=== PATIENT | female | born 1955 | race Caucasian/White ===

== ENCOUNTER 2023-05-01 12:25 | Outpatient (AMB) | payer MEDICARE, MEDICAID, SELFPAY ==
--- NOTE | 2023-05-01 13:05 | HO.SPINEOV ---
Intake Intake Visit Reasons: Low back pain Intake Note: Ms. Uribe is here today c/o low back pain. MRI done @ [facility]/brought disc. Store[employer] Required: No Assessment & Plan Assessment & Plan (1) Lumbar radiculopathy, right: Code(s): M54.16 - Radiculopathy, lumbar region Plan: Dear colleague Thank you for referring Saray Uribe to the office today with a chief complaint of right leg pain and numbness. HPI: This 67-year-old female developed a radiating pain down the outside of the right thigh followed by numbness of her foot. The symptoms come after prolonged sitting, walking standing or doing stairs. Laying down improves the symptoms. She denies weakness. She denies symptoms in her left leg. The pain is excruciating and varying from a 7 to a 10/10. She tried physical therapy which made it worse and cortisone injections without effect. PMH: Diabetes, hypertension, TIAs (last 3 years ago) fibromyalgia, gastroparesis, COPD, bilateral knee surgeries bilaterally hip surgeries, shoulder surgery back surgery, cholecystectomy, tonsillectomy, appendectomy, hysterectomy, stimulator for bladder Medications: Siriva, , clonazepam, duloxetine, Jardiance, gabapentin, lidocaine patch, losartan, Zofran, oxybutynin, albuterol, aspirin, Rosuvastatin, Spiriva. Allergies: Amitriptyline, Sonopril, promethazine, latex, adhesive tape Social history: Smokes 1 pack a week. Physical Exam: Pleasant female in obvious agony. Straight leg raise produces pain down the right lateral thigh. Radiological Studies: MRI done at [facility] on 03/18/2022 shows multilevel degenerative disc disease, predominantly at L4-5 and L5-S1 and moderate L4-5 central spinal stenosis. A standing lumbar x-rays with dynamic views shows a mild upper lumbar degenerative scoliosis. No instability. Impression/Plan: This 67-year-old female is suffering from a right lumbar radiculopathy most likely related to her moderate L4-5 spinal stenosis. Her last A1c was around 7. She is in excruciating pain as stated before. Offered her a right L4-5 hemilaminotomy to decompress the L5 nerve root. 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 She is scheduled for 06/28/2023. Thank you for allowing me to participate in your patients care. total time spent was 50 minutes in counseling ,coordination of plan, personal review of imaging, surgical decision making and subsequent plan Je Galo MD, PhD Spine Fellowship Trained Neurosurgeon Director, [facility] (2) Lumbar stenosis with neurogenic claudication: Code(s): M48.062 - Spinal stenosis, lumbar region with neurogenic claudication Orders: Orders XR lumbar spine 4V min Today M54.16 - Radiculopathy, lumbar region Coding Level of Care Code New Pt Level 4 (97190) Diagnoses Lumbar radiculopathy, right M54.16 Lumbar stenosis with neurogenic claudication M48.062
== END 2023-05-01 13:56 | disposition home or self-care (01) ==
PROVIDERS: PCP Nurse Practitioner Family; Referring Provider Student in an Organized Health Care Education/Training Program; Visit Provider Neurological Surgery
DX: M54.16 Radiculopathy, lumbar region (principal); M48.062 Spinal stenosis, lumbar region with neurogenic claudication
CPT/HCPCS: 99204

== ENCOUNTER 2023-05-01 12:25 | Outpatient (REF) | payer MEDICARE, MEDICAID, SELFPAY ==
--- NOTE | ~2023-05-01 | XR_ITS ---
EXAMINATION: XR LUMBOSACRAL SPINE WITH OBLIQUES CLINICAL INFORMATION: Lumbar radiculopathy. COMPARISON: None available. TECHNIQUE: Frontal view of the lumbar spine as well as lateral views in flexion, neutral, and extension. FINDINGS: Question decreased bone mineral density. There is moderate multilevel disc degenerative change with relative sparing at L3-L4. No spondylolysis or spondylolisthesis is appreciated, including on flexion, neutral, and extension views. Mild lumbar dextrocurvature. Vertebral body heights appear maintained. No lytic or sclerotic bony lesion is seen. The paraspinal soft tissues appear unremarkable. Status post left total hip arthroplasty. Aortoiliac calcification. Status post cholecystectomy. Surgical clip projecting over the lower pelvis may represent a dropped clip. Electronic presumed pulse generating device projects posterior to the left iliac bone, and the tip of its lead projects just anterior to the left lower sacrum XR/XR lumbar spine 4V min IMPRESSION: Degenerative change.
== END 2023-05-01 12:26 | disposition home or self-care (01) ==
LOC: HO.HOSX 12:25
PROVIDERS: PCP Nurse Practitioner Family; Visit Provider Neurological Surgery
DX: M54.16 Radiculopathy, lumbar region (principal); M48.062 Spinal stenosis, lumbar region with neurogenic claudication
CPT/HCPCS: 72110

== ENCOUNTER → 2023-08-30 12:40 | Outpatient (BNV) | payer MEDICARE, MEDICAID, SELFPAY | PROVIDERS: PCP Nurse Practitioner Family; Visit Provider Internal Medicine | DX: I10 Essential (primary) hypertension (principal); Z86.73 Personal history of transient ischemic attack (TIA), and cerebral infarction without residual deficits; Z01.810 Encounter for preprocedural cardiovascular examination; M48.062 Spinal stenosis, lumbar region with neurogenic claudication | CPT/HCPCS: 93010 ==

== ENCOUNTER → 2023-09-13 08:13 | Day surgery (SDC) | payer MEDICARE, MEDICAID, SELFPAY ==
--- NOTE | 2023-08-30 | ECG_ITS ---
Test Reason : PREOP Blood Pressure : / mmHG Vent. Rate : 074 BPM Atrial Rate : 074 BPM P-R Int : 140 ms QRS Dur : 076 ms QT Int : 380 ms P-R-T Axes : 023 002 050 degrees QTc Int : 421 ms Normal sinus rhythm Normal ECG No previous ECGs available Referred By: Danni Chaparro Electronically Signed By:OSIRIS LESLIE
[2023-08-30 12:00] VITALS: BP 130/60; PULSE 78; RESP 16; O2SAT 97; BMI 29.7
--- NOTE | 2023-08-30 12:21 | HO.ANESPROP2 ---
Documented by User: Danni Chaparro NP 09/12/23 10:21 HPI - Anesthesia Eval Consult details Narrative: 68yo F for Right L4-5 Laminotomy Cardiac cleared Follows [place] [facility]. Stable at 06/2023 office visit No recent illness (Covid 04/2023) Denies CP/SOB. Able to climb 1 flight of stairs at home. Limited by back pain CAD. HTN COPD/Former Smoker/ILD/RLD. Pt states stable. Using rescue inhaler <1 x weekly. JITENDRA. CPAP QHS CVA/TIA. Last 6 years ago. No residual DM. FBS ~ 120 GERD. ppi controls Gastroparesis. Tx with zofran. PMFSH Active Problems Active Problems: All Active Problems (Updated 08/30/23 @ 12:14 by Maira Scales, RUTHANN) Lumbar stenosis with neurogenic claudication (Acute) Lumbar radiculopathy, right (Acute) Past Medical History Medical History (Updated 08/30/23 @ 12:34 by Maira Scales RN) Personal history of COVID-19 (~04/2023) Numbness of right foot Yeast infection involving the vagina and surrounding area Urge incontinence of urine CVA (cerebral vascular accident) Spondylosis of cervical spine Small intestinal bacterial overgrowth Restrictive lung disease Pulmonary emphysema Psychogenic nonepileptic seizure Pain of lower extremity Obesity Numbness Nocturia NAFLD (nonalcoholic fatty liver disease) Muscle spasm Sleep apnea Lumbar radiculopathy, right Back pain Insomnia Hypertonicity of bladder Hand paresthesia GERD (gastroesophageal reflux disease) Facet arthropathy Edema of lower extremity Dysuria Dyspnea Dyspepsia Dyslipidemia Detrusor instability of bladder Cystitis Current smoker CAD (coronary artery disease) Chronic myofascial pain CKD (chronic kidney disease) Interstitial lung disease History of headache Constipation Cervical radiculopathy Chest pain Bilateral occipital neuralgia Bacterial pneumonia Foster esophagus Allergic rhinitis Adenomatous colon polyp COPD (chronic obstructive pulmonary disease) Gastroparesis Fibromyalgia TIA (transient ischemic attack) (~2018) HTN (hypertension) Diabetes Family History Family history of problems with anesthesia: No Surgical History Surgical History (Updated 08/30/23 @ 11:59 by Maira Scales, RUTHANN) Hx of cardiac cath History of bladder surgery Hx of hysterectomy History of appendectomy History of tonsillectomy History of cholecystectomy History of back surgery Hx of shoulder surgery History of hip surgery Hx of knee surgery History of Problems with Anesthesia: No Social History Social History (Updated 08/30/23 @ 12:13 by Maira Scales RN) Are you a primary health care coach to a significant other at home: No Do you presently have visiting nurse or other home services: No Patient Tobacco Use Status: Former Tobacco user Quit Date: 05/11/2023 Tobacco use type: Cigarette Years Smoked: 15 Use of substances other than those prescribed or required for medical reasons: No Have you been hit, kicked, punched, or otherwise hurt by someone within the past year? If so, by whom?: No Are you DNR?: No Advance Directives: No Advance Directives Information Provided: Yes Advance Directives on File: No Recently lost weight without trying: No Poor oral hygiene: No (teeth-dentures ill fitting) Meds Allergies Allergy/AdvReac Type Severity Reaction Status Date / Time amitriptyline Allergy Severe Difficulty Verified 08/30/23 11:56 Breathing erythromycin base Allergy Severe Difficulty Verified 08/30/23 11:56 Breathing, hives latex Allergy Severe Rash Verified 08/30/23 11:56 lisinopril Allergy Severe Hives, Verified 08/30/23 11:56 difficulty breathing promethazine Allergy Severe Involuntary Verified 08/30/23 11:56 Spasms, body felt paralyzed adhesive tape Allergy Intermediate Rash Verified 08/30/23 11:56 Iodinated Contrast Media AdvReac Mild Confusion Verified 08/30/23 11:56 Home Medications Medication Instructions Recorded Confirmed Last Taken Type albuterol sulfate 90 mcg/actuation inhalation Q4-6H PRN Shortness Of 06/13/23 Unknown History aerosol inhaler (Ventolin HFA) Breath Or Wheezing aspirin 81 mg tablet,delayed 81 mg PO BEDTIME 06/13/23 08/30/23 09/11/23 History release clonazepam 1 mg tablet 1 mg PO DAILY 06/13/23 08/30/23 Unknown History empagliflozin 25 mg tablet 25 mg PO DAILY 06/13/23 08/30/23 Unknown History (Jardiance) gabapentin 400 mg capsule 400 mg PO BEDTIME 06/13/23 08/30/23 Unknown History lidocaine 5 % topical patch 1 patch topical DAILY PRN Pain 06/13/23 08/30/23 Unknown History losartan 25 mg tablet 25 mg PO DAILY 06/13/23 08/30/23 Unknown History ondansetron 8 mg disintegrating 8 mg PO DAILY PRN Nausea And 06/13/23 08/30/23 Unknown History tablet Vomiting oxybutynin chloride 10 mg 10 mg PO DAILY PRN Incontinence 06/13/23 08/30/23 Unknown History tablet,extended release 24 hr rosuvastatin 20 mg tablet 20 mg PO DAILY 06/13/23 08/30/23 Unknown History budesonide-formoterol HFA 160 2 puff inhalation BID 08/30/23 08/30/23 Unknown History mcg-4.5 mcg/actuation aerosol inhaler (Symbicort) duloxetine 30 mg capsule,delayed 30 mg PO DAILY 08/30/23 08/30/23 Unknown History release (Cymbalta) pantoprazole 40 mg tablet,delayed 40 mg PO BEDTIME 08/30/23 08/30/23 Unknown History release Exam Height,Weight and Vital Signs: Height 5 ft 4 in Weight 78.471 kg Last Vital Signs Pulse 78 08/30/23 12:00 Resp 16 08/30/23 12:00 BP 130/60 08/30/23 12:00 Pulse Ox 97 08/30/23 12:00 O2 Del Method Room Air 08/30/23 12:00 Pertinent Lab Results Pertinent Lab Results: Lab Results 08/30/23 Range/Units 13:01 WBC 9.9 (4.8-10.8) X10*3/uL RBC 5.24 (4.20-5.50) X10*6/uL Hgb 15.1 (12.0-16.0) g/dl Hct 46.9 (37.0-47.0) % MCV 89.5 (80.0-98.0) fL MCH 28.8 (27.0-33.0) pg MCHC 32.2 (31.0-35.0) g/dl RDW 13.5 (11.0-16.0) % Plt Count 259 (160-400) X10*3/uL MPV 9.8 (9.4-12.3) fL Absolute Nucleated RBC 0.000 (0.0-0.012) X10*3/uL Nucleated RBC % (auto) 0.0 (0.0-0.2) /100WBC Sodium 136 (135-145) mmol/L Potassium 4.2 (3.3-5.1) mmol/L Chloride 103 (96-108) mmol/L Carbon Dioxide 25 (22-29) mmol/L Anion Gap 12 (12-20) BUN 20 H (9-16) mg/dL Creatinine 1.16 (0.5-1.4) mg/dL Estim Creat Clear Calc 47.7 Estimated GFR 47 Random Glucose 141 H (60-115) mg/dL Estimat Average Glucose 154 mg/dL Hemoglobin A1c % 7.0 H (<6.0) % Calcium 10.2 (8.4-10.2) mg/dL Narrative Narrative: EKG 08/2023 Vent. Rate : 074 BPM Atrial Rate : 074 BPM P-R Int : 140 ms QRS Dur : 076 ms QT Int : 380 ms P-R-T Axes : 023 002 050 degrees QTc Int : 421 ms Normal sinus rhythm Normal ECG No previous ECGs available Airway Mallampati Class: IV TM Dist: >3cm Neck ROM: Limited (pinched nerve) Denture: Upper and Lower Loose/Missing/Broken Teeth: No (Doesnt wear dentures) Heart: RRR Lungs: Coarse LL Faint wheeze upper right Assessment and Plan Assessment Anesthesia Assessment: Anesthesia Plan Discussed and PAT Visit Final Anesthetic Review Family History of Problems with Anesthesia: No History of Problems with Anesthesia: No Documented by User: Zlealem Ferguson MD 09/13/23 09:21 [facility] Past Medical History Medical History (Updated 08/30/23 @ 12:34 by Maira Scales, RUTHANN) Personal history of COVID-19 (~04/2023) Numbness of right foot Yeast infection involving the vagina and surrounding area Urge incontinence of urine CVA (cerebral vascular accident) Spondylosis of cervical spine Small intestinal bacterial overgrowth Restrictive lung disease Pulmonary emphysema Psychogenic nonepileptic seizure Pain of lower extremity Obesity Numbness Nocturia NAFLD (nonalcoholic fatty liver disease) Muscle spasm Sleep apnea Lumbar radiculopathy, right Back pain Insomnia Hypertonicity of bladder Hand paresthesia GERD (gastroesophageal reflux disease) Facet arthropathy Edema of lower extremity Dysuria Dyspnea Dyspepsia Dyslipidemia Detrusor instability of bladder Cystitis Current smoker CAD (coronary artery disease) Chronic myofascial pain CKD (chronic kidney disease) Interstitial lung disease History of headache Constipation Cervical radiculopathy Chest pain Bilateral occipital neuralgia Bacterial pneumonia Foster esophagus Allergic rhinitis Adenomatous colon polyp COPD (chronic obstructive pulmonary disease) Gastroparesis Fibromyalgia TIA (transient ischemic attack) (~2018) HTN (hypertension) Diabetes Surgical History Surgical History (Updated 08/30/23 @ 11:59 by Maira Scales RN) Hx of cardiac cath History of bladder surgery Hx of hysterectomy History of appendectomy History of tonsillectomy History of cholecystectomy History of back surgery Hx of shoulder surgery History of hip surgery Hx of knee surgery Social History Social History (Updated 08/30/23 @ 12:13 by Maira Scales RN) Are you a primary health care coach to a significant other at home: No Do you presently have visiting nurse or other home services: No Patient Tobacco Use Status: Former Tobacco user Quit Date: 05/11/2023 Tobacco use type: Cigarette Years Smoked: 15 Use of substances other than those prescribed or required for medical reasons: No Have you been hit, kicked, punched, or otherwise hurt by someone within the past year? If so, by whom?: No Are you DNR?: No Advance Directives: No Advance Directives Information Provided: Yes Advance Directives on File: No Recently lost weight without trying: No Poor oral hygiene: No (teeth-dentures ill fitting) Meds Allergies Allergy/AdvReac Type Severity Reaction Status Date / Time amitriptyline Allergy Severe Difficulty Verified 08/30/23 11:56 Breathing erythromycin base Allergy Severe Difficulty Verified 08/30/23 11:56 Breathing, hives latex Allergy Severe Rash Verified 08/30/23 11:56 lisinopril Allergy Severe Hives, Verified 08/30/23 11:56 difficulty breathing promethazine Allergy Severe Involuntary Verified 08/30/23 11:56 Spasms, body felt paralyzed adhesive tape Allergy Intermediate Rash Verified 08/30/23 11:56 Iodinated Contrast Media AdvReac Mild Confusion Verified 08/30/23 11:56 Home Medications Medication Instructions Recorded Confirmed Last Taken Type albuterol sulfate 90 mcg/actuation inhalation Q4-6H PRN Shortness Of 06/13/23 Unknown History aerosol inhaler (Ventolin HFA) Breath Or Wheezing aspirin 81 mg tablet,delayed 81 mg PO BEDTIME 06/13/23 08/30/23 09/11/23 History release clonazepam 1 mg tablet 1 mg PO DAILY 06/13/23 08/30/23 Unknown History empagliflozin 25 mg tablet 25 mg PO DAILY 06/13/23 08/30/23 Unknown History (Jardiance) gabapentin 400 mg capsule 400 mg PO BEDTIME 06/13/23 08/30/23 Unknown History lidocaine 5 % topical patch 1 patch topical DAILY PRN Pain 06/13/23 08/30/23 Unknown History losartan 25 mg tablet 25 mg PO DAILY 06/13/23 08/30/23 Unknown History ondansetron 8 mg disintegrating 8 mg PO DAILY PRN Nausea And 06/13/23 08/30/23 Unknown History tablet Vomiting oxybutynin chloride 10 mg 10 mg PO DAILY PRN Incontinence 06/13/23 08/30/23 Unknown History tablet,extended release 24 hr rosuvastatin 20 mg tablet 20 mg PO DAILY 06/13/23 08/30/23 Unknown History budesonide-formoterol HFA 160 2 puff inhalation BID 08/30/23 08/30/23 Unknown History mcg-4.5 mcg/actuation aerosol inhaler (Symbicort) duloxetine 30 mg capsule,delayed 30 mg PO DAILY 08/30/23 08/30/23 Unknown History release (Cymbalta) pantoprazole 40 mg tablet,delayed 40 mg PO BEDTIME 08/30/23 08/30/23 Unknown History release Assessment and Plan Final Anesthetic Review NPO: Yes ASA Class: III Final Preanesthetic Review: No Changes in Pt Med Stat, Meds/Allgs Chart Reviewed, Consent Obtained/Reviewed and Anes Risks/Benef Reviewed Patient Risk: Intermediate Procedure Risk: Intermediate Anesthetic Plan Anesthetic Plan: GA Disposition: Standard PACU
[2023-08-30 13:33] LABS: Hematocrit 46.9 % (37.0-47.0); Hemoglobin 15.1 g/dl (12.0-16.0); Mean Corpuscular HGB Conc 32.2 g/dl (31.0-35.0); Mean Corpuscular Hemoglobin 28.8 pg (27.0-33.0); Mean Corpuscular Volume 89.5 fL (80.0-98.0); Mean Platelet Volume 9.8 fL (9.4-12.3); Platelet Count 259 X10*3/uL (160-400); Red Blood Count 5.24 X10*6/uL (4.20-5.50); Red Cell Distribution Width 13.5 % (11.0-16.0); White Blood Count 9.9 X10*3/uL (4.8-10.8)
[2023-08-30 13:46] LABS: Estimated Average Glucose 154 mg/dL
[2023-08-30 13:49] LABS: Anion Gap 12 (12-20); Blood Urea Nitrogen 20 mg/dL (9-16); Calcium 10.2 mg/dL (8.4-10.2); Carbon Dioxide 25 mmol/L (22-29); Chloride 103 mmol/L (96-108); Creatinine Clr Calc Pharmacy 47.7; Estimated Glomerular Filt Rate 47; Glucose Random 141 mg/dL (60-115); Potassium 4.2 mmol/L (3.3-5.1); Sodium 136 mmol/L (135-145)
--- NOTE | 2023-09-13 07:01 | MHC.SHP ---
Pre-Procedural Eval Section A - 24 Hr Update-Section A only Date of Service: 09/13/23 The patient is an INPATIENT: No Changes since office visit: No Cold of Flu in the past 2 weeks, No New Medical Problems, No Changes in Medication and No Patient answered all questions The patient has been examined within 24 hours of the surgical procedure. The History & Physical has been completed within 30 days and I have reviewed it.: No Section B - Complete if H&P > 30 days Chief Complaint: Radiculopathy, lumbar region Allergies: Allergies Allergy/AdvReac Type Severity Reaction Status Date / Time amitriptyline Allergy Severe Difficulty Verified 08/30/23 11:56 Breathing erythromycin base Allergy Severe Difficulty Verified 08/30/23 11:56 Breathing, hives latex Allergy Severe Rash Verified 08/30/23 11:56 lisinopril Allergy Severe Hives, Verified 08/30/23 11:56 difficulty breathing promethazine Allergy Severe Involuntary Verified 08/30/23 11:56 Spasms, body felt paralyzed adhesive tape Allergy Intermediate Rash Verified 08/30/23 11:56 Iodinated Contrast Media AdvReac Mild Confusion Verified 08/30/23 11:56 Review of Systems Sugical H&P ROS: Negative: Constitution, Cardiovascular, Respiratory, Neurological, Psychiatric, Hem-Onc, Allergic/Immunologic, Gastrointestinal, Genitourinary, Musculoskeletal, Integumentary, Endocrine and Eyes/Ears/Nose/Throat Exam Surgical H&P Exam: Not Evaluated: HEENT, Not Evaluated: Heart, Not Evaluated: Lungs, Not Evaluated: Extremities, Not Evaluated: Abdomen, Not Evaluated: Skin and Not Evaluated: Neurological Plan Diagnosis/Plan: Unchanged right L4-5 hemilaminotomy Time Spent With Patient Time: Total time managing care of this patient today __4__ minutes.
[2023-09-13 08:19] VITALS: BP 140/71; PULSE 65; RESP 18; TEMP 36.4; O2SAT 95
[2023-09-13 08:29] LABS: Glucose, Whole Blood 149 mg/dL (60-115)
[2023-09-13 08:33] VITALS: BMI 29.5
[2023-09-13] MEDS: Lactated Ringers 1,000 ML 100 ML IVCONT (08:45)
[2023-09-13] MEDS: Gabapentin 300 MG CAPSULE PO (08:45)
[2023-09-13] MEDS: methocarbamoL 750 MG TABLET PO (08:45)
--- NOTE | 2023-09-13 10:35 | HO.ANESPROP2 ---
COUNTS INCLUDE 234 BEDS AT THE [facility] Active Problems Active Problems: All Active Problems (Updated 08/30/23 @ 12:34 by Maira Scales, RN) Lumbar stenosis with neurogenic claudication (Acute) Lumbar radiculopathy, right (Acute) Past Medical History Medical History (Updated 08/30/23 @ 12:34 by Maira Scales, RN) Personal history of COVID-19 (~04/2023) Numbness of right foot Yeast infection involving the vagina and surrounding area Urge incontinence of urine CVA (cerebral vascular accident) Spondylosis of cervical spine Small intestinal bacterial overgrowth Restrictive lung disease Pulmonary emphysema Psychogenic nonepileptic seizure Pain of lower extremity Obesity Numbness Nocturia NAFLD (nonalcoholic fatty liver disease) Muscle spasm Sleep apnea Lumbar radiculopathy, right Back pain Insomnia Hypertonicity of bladder Hand paresthesia GERD (gastroesophageal reflux disease) Facet arthropathy Edema of lower extremity Dysuria Dyspnea Dyspepsia Dyslipidemia Detrusor instability of bladder Cystitis Current smoker CAD (coronary artery disease) Chronic myofascial pain CKD (chronic kidney disease) Interstitial lung disease History of headache Constipation Cervical radiculopathy Chest pain Bilateral occipital neuralgia Bacterial pneumonia Foster esophagus Allergic rhinitis Adenomatous colon polyp COPD (chronic obstructive pulmonary disease) Gastroparesis Fibromyalgia TIA (transient ischemic attack) (~2018) HTN (hypertension) Diabetes Family History Family history of problems with anesthesia: No Surgical History Surgical History (Updated 08/30/23 @ 11:59 by Maira Scales, RUTHANN) Hx of cardiac cath History of bladder surgery Hx of hysterectomy History of appendectomy History of tonsillectomy History of cholecystectomy History of back surgery Hx of shoulder surgery History of hip surgery Hx of knee surgery History of Problems with Anesthesia: No Social History Social History (Updated 08/30/23 @ 12:13 by Maira Scales, RN) Are you a primary career center advisor to a significant other at home: No Do you presently have visiting nurse or other home services: No Patient Tobacco Use Status: Former Tobacco user Quit Date: 05/11/2023 Tobacco use type: Cigarette Years Smoked: 15 Use of substances other than those prescribed or required for medical reasons: No Have you been hit, kicked, punched, or otherwise hurt by someone within the past year? If so, by whom?: No Are you DNR?: No Advance Directives: No Advance Directives Information Provided: Yes Advance Directives on File: No Recently lost weight without trying: No Poor oral hygiene: No (teeth-dentures ill fitting) Meds Allergies Allergy/AdvReac Type Severity Reaction Status Date / Time amitriptyline Allergy Severe Difficulty Verified 08/30/23 11:56 Breathing erythromycin base Allergy Severe Difficulty Verified 08/30/23 11:56 Breathing, hives latex Allergy Severe Rash Verified 08/30/23 11:56 lisinopril Allergy Severe Hives, Verified 08/30/23 11:56 difficulty breathing promethazine Allergy Severe Involuntary Verified 08/30/23 11:56 Spasms, body felt paralyzed adhesive tape Allergy Intermediate Rash Verified 08/30/23 11:56 Iodinated Contrast Media AdvReac Mild Confusion Verified 08/30/23 11:56 Active Medications: Current Medications Albuterol Sulfate (Albuterol Sulfate (0.083%) 2.5 Mg/3 Ml Vial.Neb) 2.5 mg INHALE ONCE PRN PRN Reason: Shortness of Breath/Wheezing Lactated Ringer's (Lr) 1,000 mls @ 100 mls/hr IVCONT .Q10H KATELYNN Last Admin: 09/13/23 08:45 Dose: 100 mls/hr Home Medications Medication Instructions Recorded Confirmed Last Taken Type albuterol sulfate 90 mcg/actuation inhalation Q4-6H PRN Shortness Of 06/13/23 09/12/23 History aerosol inhaler (Ventolin HFA) Breath Or Wheezing aspirin 81 mg tablet,delayed 81 mg PO BEDTIME 06/13/23 08/30/23 09/11/23 History release clonazepam 1 mg tablet 1 mg PO DAILY 06/13/23 08/30/23 09/12/23 History empagliflozin 25 mg tablet 25 mg PO DAILY 06/13/23 09/13/23 09/12/23 History (Jardiance) gabapentin 400 mg capsule 400 mg PO BEDTIME 06/13/23 08/30/23 09/12/23 History lidocaine 5 % topical patch 1 patch topical DAILY PRN Pain 06/13/23 08/30/23 08/23/23 History losartan 25 mg tablet 25 mg PO DAILY 06/13/23 08/30/23 09/12/23 History ondansetron 8 mg disintegrating 8 mg PO DAILY PRN Nausea And 06/13/23 08/30/23 09/12/23 History tablet Vomiting oxybutynin chloride 10 mg 10 mg PO DAILY PRN Incontinence 06/13/23 08/30/23 09/12/23 History tablet,extended release 24 hr rosuvastatin 20 mg tablet 20 mg PO DAILY 06/13/23 08/30/23 09/12/23 History budesonide-formoterol HFA 160 2 puff inhalation BID 08/30/23 08/30/23 09/12/23 History mcg-4.5 mcg/actuation aerosol inhaler (Symbicort) duloxetine 30 mg capsule,delayed 30 mg PO DAILY 08/30/23 08/30/23 09/12/23 History release (Cymbalta) pantoprazole 40 mg tablet,delayed 40 mg PO BEDTIME 08/30/23 08/30/23 09/12/23 History release Exam Height,Weight and Vital Signs: Height 5 ft 4 in Weight 77.9 kg Last Vital Signs Temp 97.6 F 09/13/23 08:19 Pulse 65 09/13/23 08:19 Resp 18 09/13/23 08:19 BP 140/71 H 09/13/23 08:19 Pulse Ox 95 09/13/23 08:19 O2 Del Method Room Air 09/13/23 08:19 Pertinent Lab Results Pertinent Lab Results: Laboratory Tests 08/30/23 09/13/23 13:01 08:27 WBC 9.9 RBC 5.24 Hgb 15.1 Hct 46.9 MCV 89.5 MCH 28.8 MCHC 32.2 RDW 13.5 Plt Count 259 MPV 9.8 Absolute Nucleated RBC 0.000 Nucleated RBC % (auto) 0.0 Sodium 136 Potassium 4.2 Chloride 103 Carbon Dioxide 25 Anion Gap 12 BUN 20 H Creatinine 1.16 Estim Creat Clear Calc 47.7 Estimated GFR 47 POC Glucose 149 H Random Glucose 141 H Estimat Average Glucose 154 Hemoglobin A1c % 7.0 H Calcium 10.2 Airway Mallampati Class: III TM Dist: >3cm Neck ROM: Full Assessment and Plan Assessment Anesthesia Assessment: Anesthesia Plan Discussed and Chart Reviewed Final Anesthetic Review Family History of Problems with Anesthesia: No History of Problems with Anesthesia: No NPO: Yes ASA Class: III Final Preanesthetic Review: No Changes in Pt Med Stat, Meds/Allgs Chart Reviewed, Consent Obtained/Reviewed and Anes Risks/Benef Reviewed Patient Risk: Intermediate Procedure Risk: Intermediate Anesthetic Plan Anesthetic Plan: GA Disposition: Standard PACU
--- NOTE | 2023-09-13 10:40 | PC.NURSE ---
dr monica walter at bedside pt being cancelled took her jardiance yesterday aware will reschedule pt verbalized understanding
== END ==
PROVIDERS: Nurse Practitioner; PCP Nurse Practitioner Family; Visit Provider Neurological Surgery
DX: M54.16 Radiculopathy, lumbar region (principal); Z53.09 Procedure and treatment not carried out because of other contraindication; M48.062 Spinal stenosis, lumbar region with neurogenic claudication; I12.9 Hypertensive chronic kidney disease with stage 1 through stage 4 chronic kidney disease, or unspecified chronic kidney disease; E11.22 Type 2 diabetes mellitus with diabetic chronic kidney disease; N18.9 Chronic kidney disease, unspecified; J44.9 Chronic obstructive pulmonary disease, unspecified; G47.33 Obstructive sleep apnea (adult) (pediatric); Z79.84 Long term (current) use of oral hypoglycemic drugs; Z86.73 Personal history of transient ischemic attack (TIA), and cerebral infarction without residual deficits; Z87.891 Personal history of nicotine dependence; Z79.82 Long term (current) use of aspirin
CPT/HCPCS: 36415; 80048; 82947; 83036; 85027; 93005; J0131; J0690; J2250; J2704; J3010

== ENCOUNTER 2023-11-29 07:31 | Day surgery (SDC) | payer MEDICARE, MEDICAID, SELFPAY ==
--- NOTE | 2023-11-27 10:50 | P.CONAN_ITS ---
Documented by User: Danni Chaparro NP 11/27/23 10:52 HPI - Anesthesia Eval Consult details Narrative: From 08/2023 PAT appt 68yo F for Right L4-5 Hemilaminectomy Cardiac cleared Follows [facility] Stable at 06/2023 office visit No recent illness (Covid 04/2023) Denies CP/SOB. Able to climb 1 flight of stairs at home. Limited by back pain CAD. HTN COPD/Former Smoker/ILD/RLD. Pt states stable. Using rescue inhaler <1 x weekly. JITENDRA. CPAP QHS CVA/TIA. Last 6 years ago. No residual DM. FBS ~ 120 GERD. ppi controls Gastroparesis. Tx with zofran. Anesthesia Pre-Procedure Meds Is the patient on any of the following meds?: SGLT2 Inhib PMFSH Active Problems Active Problems: All Active Problems (Updated 08/30/23 @ 12:34 by Maira Scales RN) Lumbar stenosis with neurogenic claudication (Acute) Lumbar radiculopathy, right (Acute) Past Medical History Medical History Personal history of COVID-19 (~04/2023) Numbness of right foot Yeast infection involving the vagina and surrounding area Urge incontinence of urine CVA (cerebral vascular accident) Spondylosis of cervical spine Small intestinal bacterial overgrowth Restrictive lung disease Pulmonary emphysema Psychogenic nonepileptic seizure Pain of lower extremity Obesity Numbness Nocturia NAFLD (nonalcoholic fatty liver disease) Muscle spasm Sleep apnea Lumbar radiculopathy, right Back pain Insomnia Hypertonicity of bladder Hand paresthesia GERD (gastroesophageal reflux disease) Facet arthropathy Edema of lower extremity Dysuria Dyspnea Dyspepsia Dyslipidemia Detrusor instability of bladder Cystitis Current smoker CAD (coronary artery disease) Chronic myofascial pain CKD (chronic kidney disease) Interstitial lung disease History of headache Constipation Cervical radiculopathy Chest pain Bilateral occipital neuralgia Bacterial pneumonia Foster esophagus Allergic rhinitis Adenomatous colon polyp COPD (chronic obstructive pulmonary disease) Gastroparesis Fibromyalgia TIA (transient ischemic attack) (~2018) HTN (hypertension) Diabetes Family History Family history of problems with anesthesia: No Surgical History Surgical History Hx of cardiac cath History of bladder surgery Hx of hysterectomy History of appendectomy History of tonsillectomy History of cholecystectomy History of back surgery Hx of shoulder surgery History of hip surgery Hx of knee surgery History of Problems with Anesthesia: No Social History Social History Are you a primary care management coordinator to a significant other at home: No Do you presently have visiting nurse or other home services: No Patient Tobacco Use Status: Former Tobacco user Quit Date: 05/11/2023 Tobacco use type: Cigarette Years Smoked: 15 Meds Allergies Allergy/AdvReac Type Severity Reaction Status Date / Time amitriptyline Allergy Severe Difficulty Verified 08/30/23 11:56 Breathing erythromycin base Allergy Severe Difficulty Verified 08/30/23 11:56 Breathing, hives latex Allergy Severe Rash Verified 08/30/23 11:56 lisinopril Allergy Severe Hives, Verified 08/30/23 11:56 difficulty breathing promethazine Allergy Severe Involuntary Verified 08/30/23 11:56 Spasms, body felt paralyzed adhesive tape Allergy Intermediate Rash Verified 08/30/23 11:56 Iodinated Contrast Media AdvReac Mild Confusion Verified 08/30/23 11:56 Home Medications ?Medication ?Instructions ?Recorded ?Confirmed ?Last Taken ?Type albuterol sulfate 90 mcg/actuation inhalation Q4-6H PRN Shortness Of 06/13/23 09/12/23 History aerosol inhaler (Ventolin HFA) Breath Or Wheezing aspirin 81 mg tablet,delayed 81 mg PO BEDTIME 06/13/23 08/30/23 11/21/23 History release clonazepam 1 mg tablet 1 mg PO DAILY 06/13/23 08/30/23 11/28/23 History empagliflozin 25 mg tablet 25 mg PO DAILY 06/13/23 09/13/23 11/25/23 History (Jardiance) gabapentin 400 mg capsule 400 mg PO BEDTIME 06/13/23 08/30/23 11/28/23 History lidocaine 5 % topical patch 1 patch topical DAILY PRN Pain 06/13/23 08/30/23 08/23/23 History losartan 25 mg tablet 25 mg PO DAILY 06/13/23 08/30/23 11/28/23 History ondansetron 8 mg disintegrating 8 mg PO DAILY PRN Nausea And 06/13/23 08/30/23 11/28/23 History tablet Vomiting oxybutynin chloride 10 mg 10 mg PO DAILY PRN Incontinence 06/13/23 08/30/23 11/28/23 History tablet,extended release 24 hr rosuvastatin 20 mg tablet 20 mg PO DAILY 06/13/23 08/30/23 11/28/23 History budesonide-formoterol HFA 160 2 puff inhalation BID 08/30/23 08/30/23 11/28/23 History mcg-4.5 mcg/actuation aerosol inhaler (Symbicort) duloxetine 30 mg capsule,delayed 30 mg PO DAILY 08/30/23 08/30/23 11/28/23 History release (Cymbalta) pantoprazole 40 mg tablet,delayed 40 mg PO BEDTIME 08/30/23 08/30/23 11/28/23 History release Exam Height,Weight and Vital Signs: Height 5 ft 4 in Weight 78.471 kg Last Vital Signs Pulse 78 08/30/23 12:00 Resp 16 08/30/23 12:00 BP 130/60 08/30/23 12:00 Pulse Ox 97 08/30/23 12:00 O2 Del Method Room Air 08/30/23 12:00 Pertinent Lab Results Pertinent Lab Results: Lab Results 08/30/23 Range/Units 13:01 WBC 9.9 (4.8-10.8) X10*3/uL RBC 5.24 (4.20-5.50) X10*6/uL Hgb 15.1 (12.0-16.0) g/dl Hct 46.9 (37.0-47.0) % MCV 89.5 (80.0-98.0) fL MCH 28.8 (27.0-33.0) pg MCHC 32.2 (31.0-35.0) g/dl RDW 13.5 (11.0-16.0) % Plt Count 259 (160-400) X10*3/uL MPV 9.8 (9.4-12.3) fL Absolute Nucleated RBC 0.000 (0.0-0.012) X10*3/uL Nucleated RBC % (auto) 0.0 (0.0-0.2) /100WBC Sodium 136 (135-145) mmol/L Potassium 4.2 (3.3-5.1) mmol/L Chloride 103 (96-108) mmol/L Carbon Dioxide 25 (22-29) mmol/L Anion Gap 12 (12-20) BUN 20 H (9-16) mg/dL Creatinine 1.16 (0.5-1.4) mg/dL Estim Creat Clear Calc 47.7 Estimated GFR 47 Random Glucose 141 H (60-115) mg/dL Estimat Average Glucose 154 mg/dL Hemoglobin A1c % 7.0 H (<6.0) % Calcium 10.2 (8.4-10.2) mg/dL Narrative Narrative: EKG 08/2023 Vent. Rate : 074 BPM Atrial Rate : 074 BPM P-R Int : 140 ms QRS Dur : 076 ms QT Int : 380 ms P-R-T Axes : 023 002 050 degrees QTc Int : 421 ms Normal sinus rhythm Normal ECG No previous ECGs available Airway Mallampati Class: IV TM Dist: >3cm Neck ROM: Limited (pinched nerve) Denture: Upper and Lower Loose/Missing/Broken Teeth: No (Doesnt wear dentures) Heart: RRR Lungs: Coarse LL Faint wheeze upper right Assessment and Plan Assessment Anesthesia Assessment: Chart Reviewed (PAT 08/30/23) Final Anesthetic Review Family History of Problems with Anesthesia: No History of Problems with Anesthesia: No Documented by User: Aretha Antonio MD 11/29/23 08:24 HPI - Anesthesia Eval Anesthesia Pre-Procedure Meds Is the patient on any of the following meds?: SGLT2 Inhib (Last dose of Jardiance 11/26/23) If yes to any meds - educate patient: Pt education - increased risk of aspiration and/or euvolemic DKA PMFSH Active Problems Active Problems: All Active Problems (Updated 11/29/23 @ 08:00 by Aretha Antonio MD) Lumbar stenosis with neurogenic claudication (Acute) Lumbar radiculopathy, right (Acute) COPD. Wet cough. Patient states chronic. Unclear if inhaler used daily CAD. No h/o PA. Denies recent chest pain JITENDRA. Uses CPAP machine at night Past Medical History Medical History Personal history of COVID-19 (~04/2023) Numbness of right foot Yeast infection involving the vagina and surrounding area Urge incontinence of urine CVA (cerebral vascular accident) Spondylosis of cervical spine Small intestinal bacterial overgrowth Restrictive lung disease Pulmonary emphysema Psychogenic nonepileptic seizure Pain of lower extremity Obesity Numbness Nocturia NAFLD (nonalcoholic fatty liver disease) Muscle spasm Sleep apnea Lumbar radiculopathy, right Back pain Insomnia Hypertonicity of bladder Hand paresthesia GERD (gastroesophageal reflux disease) Facet arthropathy Edema of lower extremity Dysuria Dyspnea Dyspepsia Dyslipidemia Detrusor instability of bladder Cystitis Current smoker CAD (coronary artery disease) Chronic myofascial pain CKD (chronic kidney disease) Interstitial lung disease History of headache Constipation Cervical radiculopathy Chest pain Bilateral occipital neuralgia Bacterial pneumonia Foster esophagus Allergic rhinitis Adenomatous colon polyp COPD (chronic obstructive pulmonary disease) Gastroparesis Fibromyalgia TIA (transient ischemic attack) (~2018) HTN (hypertension) Diabetes Family History Family history of problems with anesthesia: No Surgical History Surgical History Hx of cardiac cath History of bladder surgery Hx of hysterectomy History of appendectomy History of tonsillectomy History of cholecystectomy History of back surgery Hx of shoulder surgery History of hip surgery Hx of knee surgery History of Problems with Anesthesia: No Social History Social History Are you a primary care management coordinator to a significant other at home: No Do you presently have visiting nurse or other home services: No Patient Tobacco Use Status: Former Tobacco user Quit Date: 05/11/2023 Tobacco use type: Cigarette Years Smoked: 15 Meds Allergies Allergy/AdvReac Type Severity Reaction Status Date / Time amitriptyline Allergy Severe Difficulty Verified 08/30/23 11:56 Breathing erythromycin base Allergy Severe Difficulty Verified 08/30/23 11:56 Breathing, hives latex Allergy Severe Rash Verified 08/30/23 11:56 lisinopril Allergy Severe Hives, Verified 08/30/23 11:56 difficulty breathing promethazine Allergy Severe Involuntary Verified 08/30/23 11:56 Spasms, body felt paralyzed adhesive tape Allergy Intermediate Rash Verified 08/30/23 11:56 Iodinated Contrast Media AdvReac Mild Confusion Verified 08/30/23 11:56 Home Medications ?Medication ?Instructions ?Recorded ?Confirmed ?Last Taken ?Type albuterol sulfate 90 mcg/actuation inhalation Q4-6H PRN Shortness Of 06/13/23 09/12/23 History aerosol inhaler (Ventolin HFA) Breath Or Wheezing aspirin 81 mg tablet,delayed 81 mg PO BEDTIME 06/13/23 08/30/23 11/21/23 History release clonazepam 1 mg tablet 1 mg PO DAILY 06/13/23 08/30/23 11/28/23 History empagliflozin 25 mg tablet 25 mg PO DAILY 06/13/23 09/13/23 11/25/23 History (Jardiance) gabapentin 400 mg capsule 400 mg PO BEDTIME 06/13/23 08/30/23 11/28/23 History lidocaine 5 % topical patch 1 patch topical DAILY PRN Pain 06/13/23 08/30/23 08/23/23 History losartan 25 mg tablet 25 mg PO DAILY 06/13/23 08/30/23 11/28/23 History ondansetron 8 mg disintegrating 8 mg PO DAILY PRN Nausea And 06/13/23 08/30/23 11/28/23 History tablet Vomiting oxybutynin chloride 10 mg 10 mg PO DAILY PRN Incontinence 06/13/23 08/30/23 11/28/23 History tablet,extended release 24 hr rosuvastatin 20 mg tablet 20 mg PO DAILY 06/13/23 08/30/23 11/28/23 History budesonide-formoterol HFA 160 2 puff inhalation BID 08/30/23 08/30/23 11/28/23 History mcg-4.5 mcg/actuation aerosol inhaler (Symbicort) duloxetine 30 mg capsule,delayed 30 mg PO DAILY 08/30/23 08/30/23 11/28/23 History release (Cymbalta) pantoprazole 40 mg tablet,delayed 40 mg PO BEDTIME 08/30/23 08/30/23 11/28/23 History release Exam Height,Weight and Vital Signs: Height 5 ft 4 in Weight 78.471 kg Last Vital Signs Pulse 78 08/30/23 12:00 Resp 16 08/30/23 12:00 BP 130/60 08/30/23 12:00 Pulse Ox 97 08/30/23 12:00 O2 Del Method Room Air 08/30/23 12:00 Vital Signs Temp Pulse Resp BP Pulse Ox O2 Del Method 11/29/23 07:50 97.2 F 77 20 108/55 L 95 Room Air Airway Mallampati Class: III TM Dist: >3cm Neck ROM: Limited (Pinched nerve) Denture: Upper and Lower Loose/Missing/Broken Teeth: Yes (Edentulous. Dentures at home. Does not wear.) Lungs: CTAB Assessment and Plan Assessment Anesthesia Assessment: Anesthesia Plan Discussed, PAT Visit (08/30/23) and Chart Reviewed Final Anesthetic Review Family History of Problems with Anesthesia: No History of Problems with Anesthesia: No NPO: Yes ASA Class: III Final Preanesthetic Review: No Changes in Pt Med Stat, Meds/Allgs Chart Reviewed, Consent Obtained/Reviewed and Anes Risks/Benef Reviewed Patient Risk: Intermediate Procedure Risk: Low Assessment/Block/Sedation in SS: Assess/Block/Sedation-SS Anesthetic Plan Anesthetic Plan: GA Disposition: Standard PACU
[2023-11-29] VITALS (11 sets, daily range): BP systolic 108–151; BP diastolic 55–81; PULSE 74–88; RESP 14–23; TEMP 36.2–36.4; O2SAT 95–97; BMI 30.4
--- NOTE | ~2023-11-29 | FL_ITS ---
EXAMINATION: XR FLUOROSCOPY WITH IMAGES CLINICAL INFORMATION: L4-L5 hemilaminectomy. COMPARISON: None available. TECHNIQUE: Fluoroscopy Supervised By: Dr Galo. Fluoroscopy Time: 0.0. Cumulative Dose: 2.22 mGy. DAP: 0.457 Gycm2. Images: 1. FINDINGS: Intraoperative fluoroscopy and spot films were performed during a procedure in the OR. Probes are seen behind the L4 vertebral body. Please see Dr. Galo' report for complete details. FL/FL guidance in OR IMPRESSION: Intraoperative fluoroscopy and spot films were obtained. Please see Dr. Galo' report for complete details.
--- NOTE | 2023-11-29 06:58 | MHC.SHP ---
Pre-Procedural Eval Section A - 24 Hr Update-Section A only Date of Service: 11/29/23 The patient is an INPATIENT: No Changes since office visit: No Cold of Flu in the past 2 weeks, No New Medical Problems, No Changes in Medication and No Patient answered all questions The patient has been examined within 24 hours of the surgical procedure. The History & Physical has been completed within 30 days and I have reviewed it.: No Section B - Complete if H&P > 30 days Chief Complaint: Radiculopathy, lumbar region Allergies: Allergies Allergy/AdvReac Type Severity Reaction Status Date / Time amitriptyline Allergy Severe Difficulty Verified 08/30/23 11:56 Breathing erythromycin base Allergy Severe Difficulty Verified 08/30/23 11:56 Breathing, hives latex Allergy Severe Rash Verified 08/30/23 11:56 lisinopril Allergy Severe Hives, Verified 08/30/23 11:56 difficulty breathing promethazine Allergy Severe Involuntary Verified 08/30/23 11:56 Spasms, body felt paralyzed adhesive tape Allergy Intermediate Rash Verified 08/30/23 11:56 Iodinated Contrast Media AdvReac Mild Confusion Verified 08/30/23 11:56 Review of Systems Sugical H&P ROS: Negative: Constitution, Cardiovascular, Respiratory, Neurological, Psychiatric, Hem-Onc, Allergic/Immunologic, Gastrointestinal, Genitourinary, Musculoskeletal, Integumentary, Endocrine and Eyes/Ears/Nose/Throat Exam Surgical H&P Exam: Not Evaluated: HEENT, Not Evaluated: Heart, Not Evaluated: Lungs, Not Evaluated: Extremities, Not Evaluated: Abdomen, Not Evaluated: Skin and Not Evaluated: Neurological Plan Diagnosis/Plan: Unchanged right L4-5 decompression Time Spent With Patient Time: Total time managing care of this patient today __5__ minutes.
--- NOTE | 2023-11-29 07:40 | P.DS_ITS ---
DS: Providers Provider Date of Service: 11/29/23 Date of discharge: 11/29/23 Primary care physician: ARNOLD Holland Admitting clinician: Je Galo DS: Diagnosis Discharge Diagnosis (1) Lumbar stenosis with neurogenic claudication: Status: Acute DS: Summary Time Attestation Discharge Coordination Time (in mins): 3 Quality: Safe Use of Opioids Does Pt have an Active Cancer Diagnosis on the Problem List?: No Quality: Stroke Does the patient have a stroke diagnosis?: No Discharge Plan Discharge Patient Disposition: Home, Self-Care Referrals: Cony Martell FNP [Primary Care Provider] - 1 Week Discharge Medications: New oxycodone 5 mg tablet 5 mg PO Q4H PRN (Reason: pain) Qty: 20 0RF Rx Instructions: Partial Fill upon patient request. docusate sodium [Colace] 100 mg capsule 100 mg PO BID Qty: 20 0RF Continued oxybutynin chloride 10 mg tablet extended release 24hr 10 mg PO DAILY PRN (Reason: Incontinence) gabapentin 400 mg capsule 400 mg PO BEDTIME clonazepam 1 mg tablet 1 mg PO DAILY ondansetron 8 mg tablet,disintegrating 8 mg PO DAILY PRN (Reason: Nausea And Vomiting) losartan 25 mg tablet 25 mg PO DAILY albuterol sulfate [Ventolin HFA] 90 mcg/actuation HFA aerosol inhaler inhalation Q4-6H PRN (Reason: Shortness Of Breath Or Wheezing) rosuvastatin 20 mg tablet 20 mg PO DAILY Jardiance 25 mg tablet 25 mg PO DAILY lidocaine 5 % Adhesive Patch,Medicated 1 patch TOPICAL DAILY PRN (Reason: Pain) Rx Instructions: leave on most painful area for up to 12 hrs duloxetine [Cymbalta] 30 mg capsule,delayed release(DR/EC) 30 mg PO DAILY budesonide-formoterol [Symbicort] 160-4.5 mcg/actuation Hfa Aerosol Inhaler 2 puff INHALATION BID pantoprazole 40 mg Tablet,Delayed Release (Dr/Ec) 40 mg PO BEDTIME Held aspirin 81 mg Tablet,Delayed Release (Dr/Ec) 81 mg PO BEDTIME Hold Instructions: Resume on 12/06/23. You may resume aspirin 7 days after surgery Discharge Orders: Discharge Order (Routine); Ordered 11/29/23 Ordered By: Devendra Ackerman Diet: Advance to usual diet Activity on Discharge: As tolerated Activity Restrictions/Additional Instructions: After your spinal surgery we ask you to observe the following restrictions/guidelines: Activity: It is normal to feel some discomfort as you increase your activity, but that will improve with time. We ask you avoid heavy lifting or acitivities that cause pain. As a general rule, 8lbs is a safe limit for lifting right after surgery. Walk as much as you feel comfortable but not to exhaustion. You will feel extra tired the first few days after surgery. Stay well hydrated. It is OK to walk up and down stairs You may return to driving when you are off narcotics (such as vicodin, oxycodone, dilaudid, etc), and you are back to normal functional capacity. If you have any concerns please check with office before driving. Return to work is specific to each patient and each surgery, so please speak with your doctor/PA at first follow up. Please bring paperwork such as FMLA at that time if you need it filled out. Medications: You can resume ASA 7 days after surgery For optimum pain control, it is best to start with a combination of 500 mg of Tylenol every 4 hours with 600 mg of Motrin every 8 hours, and use narcotics as needed in between for breakthrough pain. We will give you a short supply of narcotics after surgery (usually one weeks worth). If you need more please call the office but do not use more than prescribed. You will need to give our office 48 hours notice if you need narcotics refilled and we do not fill narcotics on weekends or evenings. If you are on a narcotic, it is a good idea to take a stool softener such as colace or senna to avoid constipation If you take blood thinner such as aspirin, Plavix, Coumadin, Effient, Eliquis etc for conditions such as Afib, DVT, Pulmonary embolus, coronary disease, stents etc please speak with your surgeon about specific details as to when you can resume these medications. You can resume NSAIDs on post op day 1 (eg: Motrin, Naproxen, etc). Follow up: Please call the office, , after surgery to arrange a 3 week follow up for wound check. Wound Care: You may remove your dressing on the first day after surgery. ?You may ?leave open to air. Please do not remove the steri strips underneath. they will fall off on their own in one week. IT IS NORMAL FOR THE WOUND TO OOZE OR BE BLOODY FOR A FEW DAYS AFTER SURGERY. ?IF THIS HAPPENS JUST PLACE NEW DRESSING OVER IT TO AVOID STAINING CLOTHES. You may shower on post op day # 1 We ask that you do not let the water soak the wound. If it does get wet, just towel dry lightly. Please do not scrub your incision or place any type of chemical/ointment on the wound. No tub baths, pools or jacuzzis for one month. If you have any leaking or redness from your wound, or fevers, please call office Print Language: Georgian
[2023-11-29] MEDS: methocarbamoL 750 MG TABLET PO (07:55)
[2023-11-29] MEDS: Gabapentin 300 MG CAPSULE PO (07:55)
[2023-11-29 07:57] LABS: Glucose, Whole Blood 164 mg/dL (60-115)
[2023-11-29] MEDS: Lactated Ringers 1,000 ML 100 ML IVCONT (08:10)
--- NOTE | 2023-11-29 10:03 | W.PM.OPN ---
Operative Note Operative Note Date of Service: 11/29/23 Narrative: Preoperative Diagnosis: Right L4-5 Spinal stenosis/lateral recess stenosis/neural foraminal stenosis Operation: Right L4-L5 Laminotomy, Partial facetectomy and foraminotomy with use of microscope Consent Informed Consent was obtained for this operation. I have explained the nature, purpose and benefits of the operation. I have discussed the risks and benefit of the operation including possible complications or adverse events with patient/family. Alternative(s) were discussed with the patient with their relative benefits and risks as well as the consequences of not accepting the operation were included in obtaining consent. Surgeon: RO MASTERS MD, PHD Procedure Assisted By: madhu Sewell Description of Procedure This patient is suffering from a right L5 radiculopathy due to an L4-5 lateral recess stenosis. The patient was offered a decompression of the nervous structures. The procedure complications were explained. The patient was consented. The patient was brought to the operating room and endotracheally intubated. The patient was turned in prone position on the Jung frame. Prep and drape was done followed by timeout. Physician hr administrative assistant provided access. A mid lumbar incision was made followed by release of the paravertebral muscle on the right side to expose the right L4-5 lamina and facet joint. An intraoperative x-ray was obtained to confirm the correct level. The microscope was brought in. I took over the procedure. The high-speed drill was used to do a right L4-5 laminotomy. The flavum ligament was opened. The underlying L5 nerve root was identified as origin and followed along the medial off the pedicle into the foramen and was decompressed over its trajectory. Good pulsations were seen at the end of the decompression. Hemostasis was done. The microscope was removed. Hemostasis was done. Incision was closed in 2 layers. Steri-Strips were used to approximate incision. An OpSite with Tegaderm was used to cover the incision. All sponge needle counts were correct. Patient was extubated and transported in stable is to recovery room. Anesthesia: General Estimated Blood Loss (ml): Minimal Duration of Surgery: Under 40 Minutes Postoperative Plan: Discharge to home
[2023-11-29] MEDS: fentaNYL citrate/PF 100 MCG/2 ML VIAL 25 MCG IVPUSH ×2 (10:41→10:49)
== END 2023-11-29 12:05 | disposition home or self-care (01) ==
PROVIDERS: PCP Nurse Practitioner Family; Visit Provider Neurological Surgery
PROC: (CPT 63047; principal; 2023-11-29 09:20)
DX: M48.062 Spinal stenosis, lumbar region with neurogenic claudication (principal); M54.16 Radiculopathy, lumbar region; G47.33 Obstructive sleep apnea (adult) (pediatric); I10 Essential (primary) hypertension; I25.10 Atherosclerotic heart disease of native coronary artery without angina pectoris; J44.9 Chronic obstructive pulmonary disease, unspecified; E11.9 Type 2 diabetes mellitus without complications; K31.84 Gastroparesis; K21.9 Gastro-esophageal reflux disease without esophagitis; Z86.73 Personal history of transient ischemic attack (TIA), and cerebral infarction without residual deficits; Z79.82 Long term (current) use of aspirin; Z79.84 Long term (current) use of oral hypoglycemic drugs; Z79.899 Other long term (current) drug therapy; Z99.89 Dependence on other enabling machines and devices; Z88.1 Allergy status to other antibiotic agents; L23.1 Allergic contact dermatitis due to adhesives; Z91.040 Latex allergy status; Z91.041 Radiographic dye allergy status; Z87.891 Personal history of nicotine dependence
CPT/HCPCS: 63047; 82947; J0131; J0690; J1100; J1596; J1885; J2250; J2405; J2704; J3010

== ENCOUNTER → 2023-11-29 07:31 | Outpatient (BNV) | payer MEDICARE, MEDICAID, SELFPAY | PROVIDERS: PCP Nurse Practitioner Family; Visit Provider Physician Assistant | DX: M48.062 Spinal stenosis, lumbar region with neurogenic claudication (principal) | CPT/HCPCS: 63047; 99499 ==

== ENCOUNTER 2023-12-20 15:15 | Outpatient (AMB) | payer MEDICARE, MEDICAID, SELFPAY ==
--- NOTE | 2023-12-20 15:16 | HO.SPINEOV ---
Intake Visit Reasons: 1st post op Intake Note: Ms. Uribe is here today for her 1st post-op appointment. 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 Allergies amitriptyline Allergy (Severe, Verified 08/30/23 11:56) Difficulty Breathing erythromycin base Allergy (Severe, Verified 08/30/23 11:56) Difficulty Breathing, hives latex Allergy (Severe, Verified 08/30/23 11:56) Rash lisinopril Allergy (Severe, Verified 08/30/23 11:56) Hives, difficulty breathing promethazine Allergy (Severe, Verified 08/30/23 11:56) Involuntary Spasms, body felt paralyzed adhesive tape Allergy (Intermediate, Verified 08/30/23 11:56) Rash Iodinated Contrast Media Adverse Reaction (Mild, Verified 08/30/23 11:56) Confusion Assessment & Plan Assessment & Plan (1) Lumbar stenosis with neurogenic claudication: Code(s): M48.062 - Spinal stenosis, lumbar region with neurogenic claudication Category: Medical Plan Mrs Uribe is 3 weeks out from her right L4-5 decompression. She is doing very well in terms of improving her functional mobility. She is able to do a walk around her house now without having to stop her sit down. She will get an occasional tingling or numbness in her right foot which is annoying but is not limiting her at all. Her wound is healed up very nicely. She is looking forward to getting back to most of her other activities. We discussed activity guidelines, restrictions and expectations after lumbar decompression. She will call us down the road if something changes or if any of the symptoms returned. Devendra Galo MD, PhD [facility] Coding Level of Care Code Global (39290) Diagnoses Lumbar stenosis with neurogenic claudication M48.062
== END 2023-12-20 15:33 | disposition home or self-care (01) ==
PROVIDERS: PCP Nurse Practitioner Family; Visit Provider Physician Assistant
DX: M48.062 Spinal stenosis, lumbar region with neurogenic claudication (principal)
CPT/HCPCS: 99024

== ENCOUNTER → 2023-12-20 15:15 | Outpatient (BNVA) | payer MEDICARE, MEDICAID, SELFPAY | PROVIDERS: PCP Nurse Practitioner Family; Visit Provider Physician Assistant | DX: M48.062 Spinal stenosis, lumbar region with neurogenic claudication (principal) | CPT/HCPCS: 99212 ==